=== PATIENT | female | born 1950 | race Caucasian/White ===

== ENCOUNTER → 2024-12-30 15:40 | Outpatient (REF) | payer MEDICARE, OTHER, SELFPAY | LOC: HWRAD 15:40 | PROVIDERS: ATTENDING PHYSICIAN Chiropractor; FAMILY PHYSICIAN Internal Medicine | DX: M99.01 Segmental and somatic dysfunction of cervical region (principal); M62.40 Contracture of muscle, unspecified site; M54.12 Radiculopathy, cervical region; M99.02 Segmental and somatic dysfunction of thoracic region; M99.03 Segmental and somatic dysfunction of lumbar region | CPT/HCPCS: 72050; 72072; 72110 ==